=== PATIENT | female | born 1970 | race Hispanic/Latino ===

== ENCOUNTER → 2018-08-28 | Day surgery (SDC) | payer OTHER ==
[~2018-08-28] MED LIST: FENTANYL CITRATE/PF 100MCG/2 ML INJ ONE; IRON PO; MIDAZOLAM HCL 2 MG/2 ML VIAL ONE; PROPOFOL IV EMULSION 10 MG/ML 50 ML VIAL ONE
--- OUTSIDE RECORDS SUMMARY | 2018-08-28 10:47 | XMS REPORT ---
Author Author Admin, [place] Organization [facility] Address [address] [address] Phone Allergies, Adverse Reactions, Alerts Allergy Name Reaction Description Start Date Severity Status Provider No Known Allergies Ashley Dusty Conditions or Problems Problem Name Problem Code Onset Date Status Entry Date Provider Comment Standard Description Annotate Leg pain, acute 729.5 Active Nia Sanjana CNM Pain in limb Vaginitis 616.10 Active Nia Sanjana CNM Vaginitis and vulvovaginitis, unspecified Well woman exam V72.3 Active Nia Sanjana CNM Special investigations and examinations - Gynecological examination Medication List Medication Instructions Start Date Stop Date Generic Name NDC Status Provider Patient Instruction FLAGYL 500 MG TABS 1 tab by mouth twice a day for 7 days FLAGYL 500 MG TABS 291775 METRONIDAZOLE Inactive FLUCONAZOLE 150 MG TABS Take one tablet By Mouth. FLUCONAZOLE 150 MG TABS 066015 FLUCONAZOLE Inactive FLAGYL 500 MG TABS 1 tab by mouth twice a day for 7 days METRONIDAZOLE 30532357662 No Longer Active Nia Sanjana CNM Active FLUCONAZOLE 150 MG TABS Take one tablet By Mouth. FLUCONAZOLE [id number] No Longer Active Nia Sanjana CNM Active Diagnostic Results Date Name Value Unit Range Description Lab Report: CBC With Differential/Platelet, Comp. Metabolic Panel (14), ... - Serology hepatitis C antibody, serum <0.1 0.0-0.9 Lab Report: CBC With Differential/Platelet, Comp. Metabolic Panel (14), ... - Hematology lymphocyte count, blood, automated 2.0 X10E3/UL 10*3/mm3 0.7-3.1 Lab Report: CBC With Differential/Platelet, Comp. Metabolic Panel (14), ... - Chemistry urea nitrogen, blood 13 mg/dL 6-24 creatinine, serum 0.52 mg/dL 0.57-1.00 chloride, serum 102 mmol/L 97-108 Lab Report: CBC With Differential/Platelet, Comp. Metabolic Panel (14), ... - Hematology mean corpuscular volume, RBC 86 fL 79-97 Lab Report: CBC With Differential/Platelet, Comp. Metabolic Panel (14), ... - Chemistry triglyceride, serum, fasting 97 mg/dL 0-149 Lab Report: CBC With Differential/Platelet, Comp. Metabolic Panel (14), ... - Hematology erythrocyte (RBC) count 4.22 X10E6/UL 10*6/mm3 3.77-5.28 Lab Report: CBC With Differential/Platelet, Comp. Metabolic Panel (14), ... - Chemistry Estimated Glomerular Filtration Rate (calc) 115 mL/min/1.73m2 >59 Lab Report: CBC With Differential/Platelet, Comp. Metabolic Panel (14), ... - Hematology platelet count 221 X10E3/UL 10*3/mm3 733-920 1616/08/02 red blood cell distribution width 20.6 % 12.3-15.4 Lab Report: CBC With Differential/Platelet, Comp. Metabolic Panel (14), ... - Chemistry protein, total, serum 6.9 g/dL 6.0-8.5 HDL cholesterol, serum 71 mg/dL >39 albumin/globulin ratio, serum 1.6 1.1-2.5 Lab Report: CBC With Differential/Platelet, Comp. Metabolic Panel (14), ... - Hematology eosinophils as percent of blood leukocytes 12 % Lab Report: CBC With Differential/Platelet, Comp. Metabolic Panel (14), ... - Chemistry Absolute Neutrophils 4.7 X10E3/UL 10*3/uL 1.4-7.0 Lab Report: CBC With Differential/Platelet, Comp. Metabolic Panel (14), ... - Hematology basophil count, absolute 0.1 x10E3/uL 0.0-0.2 Lab Report: CBC With Differential/Platelet, Comp. Metabolic Panel (14), ... - Chemistry hepatitis B surface antigen Negative Negative alanine aminotransferase (SGPT), serum 19 U/L 0-32 LDL cholesterol, serum 102 mg/dL 0-99 Lab Report: CBC With Differential/Platelet, Comp. Metabolic Panel (14), ... - Hematology monocytes as percent of blood leukocytes 5 % Lab Report: CBC With Differential/Platelet, Comp. Metabolic Panel (14), ... - Chemistry cholesterol, serum 192 mg/dL 100-199 Lab Report: CBC With Differential/Platelet, Comp. Metabolic Panel (14), ... - Hematology mean corpuscular hemoglobin concentration, RBC 32.3 G/DL % 31.5-35.7 hemoglobin, blood 11.7 g/dL 11.1-15.9 leukocyte count, blood 8.0 X10E3/UL 10*3/mm3 3.4-10.8 hematocrit, blood 36.2 % 34.0-46.6 Lab Report: CBC With Differential/Platelet, Comp. Metabolic Panel (14), ... - Chemistry globulin, serum 2.7 1.5-4.5 thyroid stimulating hormone, serum 1.790 u[iU]/mL 0.450-4.500 albumin, serum 4.2 g/dL 3.5-5.5 very low density lipoproteins 19 mg/dL 5-40 Lab Report: CBC With Differential/Platelet, Comp. Metabolic Panel (14), ... - Serology rubella antibody, serum, IgG 26.40 Immune >0.99 Lab Report: CBC With Differential/Platelet, Comp. Metabolic Panel (14), ... - Chemistry calcium, serum 9.0 mg/dL 8.7-10.2 Lab Report: CBC With Differential/Platelet, Comp. Metabolic Panel (14), ... - Hematology basophils as percent of blood leukocytes 1 % monocyte count, blood, automated 0.4 X10E3/UL 10*3/uL 0.1-0.9 Lab Report: CBC With Differential/Platelet, Comp. Metabolic Panel (14), ... - Chemistry urea nitrogen/creatinine ratio, serum 25 9-23 immature granulocytes, percentage of total cells, blood 0 % Lab Report: CBC With Differential/Platelet, Comp. Metabolic Panel (14), ... - Genetics/fertility eGFR if 133 mL/min/1.73m2 >59 Lab Report: CBC With Differential/Platelet, Comp. Metabolic Panel (14), ... - Hematology lymphocytes as percent of blood leukocytes 25 % Lab Report: CBC With Differential/Platelet, Comp. Metabolic Panel (14), ... - Chemistry carbon dioxide, venous blood 22 mmol/L 18-29 Lab Report: CBC With Differential/Platelet, Comp. Metabolic Panel (14), ... - Serology rapid plasma reagin antibody, serum Non Reactive Non Reactive Lab Report: NuSwab Vaginitis Plus (VG+), Lucinda 4 Species Profile, LEONCIO, ... - Lab chlamydia DNA probe Negative Negative Lab Report: NuSwab Vaginitis Plus (VG+), Lucinda 4 Species Profile, LEONCIO, ... - Microbiology Neisseria gonorrhoeae DNA probe Negative Negative Lab Report: CBC With Differential/Platelet, Comp. Metabolic Panel (14), ... - Chemistry sodium, serum 140 mmol/L 959-059 1455/08/02 hemoglobin A1C, blood, as % of total hemoglobin 5.8 % 4.8-5.6 alkaline phosphatase, serum 94 U/L 39-117 Lab Report: CBC With Differential/Platelet, Comp. Metabolic Panel (14), ... - Hematology Eosinophil Absolute Count 0.9 X10E3/UL 10*3/uL 0.0-0.4 mean corpuscular hemoglobin, RBC 27.7 pg 26.6-33.0 Lab Report: NuSwab Vaginitis Plus (VG+), Lucinda 4 Species Profile, LEONCIO, ... - Urinalysis trichomonas vaginalis, urine Negative Negative Lab Report: CBC With Differential/Platelet, Comp. Metabolic Panel (14), ... - Chemistry bilirubin, serum, total <0.2 mg/dL mg/dL 0.0-1.2 Lab Report: CBC With Differential/Platelet, Comp. Metabolic Panel (14), ... - Hematology neutrophils as percent of blood leukocytes 57 % Lab Report: CBC With Differential/Platelet, Comp. Metabolic Panel (14), ... - Chemistry potassium, serum 4.3 mmol/L 3.5-5.2 blood glucose, random 84 mg/dL 65-99 aspartate aminotransferase (SGOT), serum 20 U/L 0-40 Encounters Date Encounter Provider Code Facility 10:57:18 CDT Ofc Vst, Est Level IV Nia Sanjana CN CPT-26908 [facility] Procedures Code Procedure Name Date Entry Date Standard Description CPT-92716 Urinalysis - Dip only - In House 10:57:18 CDT CPT-92723 Urinalysis - - In House 10:57:18 CDT CPT-94452 Handling of specimen for transfer 10:57:18 CDT CPT-59698 Venipuncture 10:57:17 CDT
--- OUTSIDE RECORDS SUMMARY | 2018-08-28 10:47 | XMS REPORT ---
Author [facility] Address Unknown Phone Unavailable Care Team Providers Care Plater Barrel Name Role Phone Unavailable Unavailable Payers Payer Name Policy Type Policy Number Effective Date Expiration Date Problems This patient has no known problems. Allergies, Adverse Reactions, Alerts Allergy Name Allergy Type Status Severity Reaction(s) Onset Date Inactive Date Treating Clinician Comments No Known Allergies DA Active U 2013-09-15 00:00:00 Medications This patient has no known medications. Results Test Description Test Time Test Comments Text Results Atomic Results Result Comments UA RFLX MICR CULT IF INDICATED 2018-08-09 07:30:00 UA COLOR (test code=COLU) Yellow Yellow UA APPEARANCE (test code=APPU) Slightly-Cloudy Clear UA GLUCOSE DIPSTICK (test code=DGLUU) Negative Negative UA BILIRUBIN DIPSTICK (test code=BILU) Negative Negative UA KETONE DIPSTICK (test code=KETU) Negative mg/dL Negative UA SPECIFIC GRAVITY (test code=SGU) 1.023 <1.030 UA BLOOD DIPSTICK (test code=RAFFY) Negative Negative UA PH DIPSTICK (test code=TEQUILA) 7.0 5.0-8.0 UA PROTEIN DIPSTICK (test code=PROU) NEGATIVE mg/dL Negative UA UROBILINOGEN DIPSTICK (test code=URO) Negative mg/dL Negative UA NITRITE DIPSTICK (test code=PATRICIO) Negative Negative UA LEUKOCYTE ESTERASE DIPSTICK (test code=LEUU) NEGATIVE Negative UA WBC (test code=WBCUR) 0-3 /HPF <4-5 <10 WBC/HPF=PYURIA ABSENT URINE CULTURE NOT INDICATED UA RBC (test code=RBCU) 0-3 /HPF <4-5 UA BACTERIA (test code=BACU) None /HPF None-Rare UA SQUAMOUS CELLS (test code=SQU) 0-5 (RARE) /HPF 0-5 (RARE) UA MUCUS (test code=MUCU) Rare /LPF <Rare less than 18 yrs old, neutropenic, or urological surgery? NOPrimary Indication f or Culture: Suprapubic Pain- CT ABD PELVIS [id number] 07:17:00 FAX: Janelle Santo [phone] [place]: St: REG Name: HE PADILLA [facility] : 9 Age/S: 48/F [address] Unit: [id number] Loc: [place] [address] Phys: Janelle Davila JAILER Acct: [id number] Dis Date: Status: REG ER PHONE #: [phone] Exam Date: 08/09/2018 0700 FAX #: [phone] Reason: RLQ abd pain EXAMS: CPT CODE: [id number] CT ABD PELVIS W/CONT 25425 EXAM: CT ABDOMEN AND PELVIS WITH IV CONTRAST Location code: R16 INDICATION: 48-year- old female with right lower quadrant pain TECHNIQUE: Contra st - Nonionic IV contrast was given. No GI contrast was given. Portal veno us phase: Abdomen and pelvis Delayed phase: None Reconstructions: Co jillian and sagittal One or more of the following dose reduction te chniques were used: Automated exposure control; adjustment of the mA and/o r kV according to the patient size; and/or use of iterative reconstruction technique. COMPARISON: None FINDINGS: Stateme nts: None. Lower thorax: Unremarkable. Hepatobiliary : The liver is normal without focal lesion. The gallbladder is normal. No biliary dilation. Pancreas: Normal. Spleen: Normal. Adrenals: Normal. Genitourinary: No solid renal mas s, significant cortical thinning, obvious renal stone or hydronephrosis. U reters are unremarkable. Urinary bladder is unremarkable. The visualized r eproductive organs are unremarkable. Gastrointestinal: There is wall thickening and significant mucosal enhancement in the distal 4 to 5 cm of terminal ileum. Appendix does not contain air and is mildly diffu sely enlarged measuring up to 0.7 cm diameter but no significant periappen diceal inflammation and no obvious appendicolith. No other focal areas of small bowel, gastric, or colonic wall thickening or mucosal thickening. No bowel distention to suggest obstruction. PAGE 1 Signed Report (CONTINUED) FAX: Janelle Santo [phone] [place]: St: REG Name: HE JOSE [facility] : 1970 Age/S: 48/F [address] Unit: [id number] Loc: [place] [address] Phys: Janelle Davila JAILER Acct: [id number] Dis Date: Status: REG ER PHONE #: [phone] Exam Date: 08/09/2018 0700 FAX #: [phone] Reason: RLQ abd pain EXAMS: CPT CODE: [id number] CT ABD PELVIS W/CONT 19406 <Continued> Vascular: No aortic aneurysm or dissection. Lymphatics: A few mildly enlarged lymph nodes are seen in the right lower quadrant mesentery measuring up to 2.3 cm diameter and nonnecrotic. No other abnormally enlarged lymph nodes by CT criteria. No inguinal adenopathy. Bones/Soft Tissues: No acute osseous findings. No ventral hernias. Peritoneum/Other: No free intraperitoneal air. No free intraperitoneal fluid. IMPRESSION: 1. Wall thickening and mucosal enhancement in the terminal ileum suspicious for ileitis or inflammatory bowel disease/Crohn's disease. 2. Appendix is mildly diffusely enlarged measuring 7 mm diameter but acute appendicitis is doubtful. 3. Mild mesenteric lymphadenopathy right lower quadrant. 4. No free fluid or free air. at 0717 Reported and signed by: Taylor Rodriguez MD CC: Janelle Davila NP Technologist: Jules Sargent Dt/Tm: 08/09/2018 (4017) [email or web address] Orig Print D/T: S: 08/09/2018 (9820 PAGE 2 Signed Report BASIC METABOLIC [id number] 07:09:00* Test Item Value Reference Range Comments SODIUM (test code=NA) 139 mmol/L 137-145 POTASSIUM (test code=K) 4.3 mmol/L 3.4-5.0 CHLORIDE (test code=CL) 107 mmol/L 98-107 CARBON DIOXIDE (test code=CO2) 24 mmol/L 22-30 GLUCOSE (test code=GLU) 104 mg/dL 74-106 BLOOD UREA NITROGEN (test code=BUN) 18 mg/dL 7-17 GLOMERULAR FILTRATION RATE (test code=GFR) >=60 max estimate >60 The estimated glomerular filtration rate is computed usingpatient race, age (>18), sex, and serum creatinine. If anyof the needed data elements are missing the Laboratory cannot compute an estimation of the glomerular filtration rate. CREATININE (test code=CREAT) 0.65 mg/dL 0.52-1.04 CALCIUM (test code=CA) 8.9 mg/dL 8.4-10.2 LIVER FUNCTION [id number] 07:09:00* Test Item Value Reference Range Comments TOTAL PROTEIN (test code=PROT) 7.3 g/dL 6.3-8.2 ALBUMIN (test code=ALB) 4.0 g/dL 3.5-5.0 BILIRUBIN TOTAL (test code=BILT) 0.2 mg/dL 0.2-1.3 BILIRUBIN CONJUGATED (test code=BILCON) 0 mg/dL 0-0.3 ~~~~~~~~~~~~~~~~~~~~~~~~~~~~~~~~~~~~~~~~~~~~~~~~~~~~~~~~~~~~CONJUGATED BILIRUBIN IS THE REPLACEMENT ASSAY FOR DIRECTBILIRUBIN.~~~~~~~~~~~~~~~~~~~~~~~~~~~~~~~~~~~~~~~~~~~~~~~~~~~~~~~~~~~~ BILIRUBIN UNCONJUGATED (test code=BILUNC) 0.1 mg/dL 0-1.1 SGOT/AST (test code=AST) 37 U/L 15-46 SGPT/ALT (test code=ALT) 39 U/L 13-69 ALKALINE PHOSPHATASE (test code=ALKP) 122 U/L 38-126 [id number] 07:09:00* Test Item Value Reference Range Comments LIPASE (test code=LIP) U/L 23-300 BASIC METABOLIC [id number] 07:09:00* Test Item Value Reference Range Comments SODIUM (test code=NA) 139 mmol/L 137-145 POTASSIUM (test code=K) 4.3 mmol/L 3.4-5.0 CHLORIDE (test code=CL) 107 mmol/L 98-107 CARBON DIOXIDE (test code=CO2) 24 mmol/L 22-30 GLUCOSE (test code=GLU) 104 mg/dL 74-106 BLOOD UREA NITROGEN (test code=BUN) 18 mg/dL 7-17 GLOMERULAR FILTRATION RATE (test code=GFR) >=60 max estimate >60 The estimated glomerular filtration rate is computed usingpatient race, age (>18), sex, and serum creatinine. If anyof the needed data elements are missing the Laboratory cannot compute an estimation of the glomerular filtration rate. CREATININE (test code=CREAT) 0.65 mg/dL 0.52-1.04 CALCIUM (test code=CA) 8.9 mg/dL 8.4-10.2 LIVER FUNCTION [id number] 07:09:00* Test Item Value Reference Range Comments TOTAL PROTEIN (test code=PROT) 7.3 g/dL 6.3-8.2 ALBUMIN (test code=ALB) 4.0 g/dL 3.5-5.0 BILIRUBIN TOTAL (test code=BILT) 0.2 mg/dL 0.2-1.3 BILIRUBIN CONJUGATED (test code=BILCON) 0 mg/dL 0-0.3 ~~~~~~~~~~~~~~~~~~~~~~~~~~~~~~~~~~~~~~~~~~~~~~~~~~~~~~~~~~~~CONJUGATED BILIRUBIN IS THE REPLACEMENT ASSAY FOR DIRECTBILIRUBIN.~~~~~~~~~~~~~~~~~~~~~~~~~~~~~~~~~~~~~~~~~~~~~~~~~~~~~~~~~~~~ BILIRUBIN UNCONJUGATED (test code=BILUNC) 0.1 mg/dL 0-1.1 SGOT/AST (test code=AST) 37 U/L 15-46 SGPT/ALT (test code=ALT) 39 U/L 13-69 ALKALINE PHOSPHATASE (test code=ALKP) 122 U/L 38-126 [id number] 07:09:00* Test Item Value Reference Range Comments LIPASE (test code=LIP) 103 U/L 23-300 CBC W/AUTO [id number] 07:05:00* Test Item Value Reference Range Comments WHITE BLOOD CELL (test code=WBC) 12.3 x10 3/uL 5.0-12.0 RED BLOOD CELL (test code=RBC) 4.13 x10 6/uL 4.20-5.40 HEMOGLOBIN (test code=HGB) 9.9 g/dL 12.0-16.0 HEMATOCRIT (test code=HCT) 33.4 % 36.0-46.0 MEAN CELL VOLUME (test code=MCV) 81 fL 81-99 MEAN CELL HGB (test code=MCH) 24.0 pg 27-31 MEAN CELL HGB CONCENTRATION (test code=MCHC) 29.6 g/dL 33-37 RED CELL DISTRIBUTION WIDTH (test code=RDW) 21.8 % 11.5-15.5 PLATELET COUNT (test code=PLT) 254 x10 3/uL 130-400 MEAN PLATELET VOLUME (test code=MPV) 12.1 fL 9.4-16.4 NEUTROPHIL % (test code=NT%) 70.4 % 43-65 IMMATURE GRANULOCYTE % (test code=IG%) 0.3 % 0.0-2.0 LYMPHOCYTE % (test code=LY%) 13.6 % 20.5-45.5 MONOCYTE % (test code=MO%) 6.6 % 5.5-11.7 EOSINOPHIL % (test code=EO%) 8.5 % 0.9-2.9 BASOPHIL % (test code=BA%) 0.6 % 0.2-1.0 NUCLEATED RBC % (test code=NRBC%) 0.0 % 0-1.0 NEUTROPHIL # (test code=NT#) 8.64 x10 3/uL 2.2-4.8 IMMATURE GRANULOCYTE # (test code=IG#) 0.04 x10 3/uL 0-0.03 LYMPHOCYTE # (test code=LY#) 1.67 x10 3/uL 1.3-2.9 MONOCYTE # (test code=MO#) 0.81 x10 3/uL 0.3-0.8 EOSINOPHIL # (test code=EO#) 1.04 x10 3/uL 0.0-0.2 BASOPHIL # (test code=BA#) 0.07 x10 3/uL 0.0-0.1 BEDSIDE [id number] 07:01:00* Test Item Value Reference Range Comments BEDSIDE CREATININE (test code=CREATBED) 0.7 mg/dL 0.52-1.04
[2018-08-28 13:25] VITALS: BP 118/72
== END | disposition home or self-care (01) ==
LOC: OR 10:45
PROVIDERS: ATTEND Internal Medicine
DX: K50.90 Crohn's disease, unspecified, without complications (principal); K64.0 First degree hemorrhoids; D64.9 Anemia, unspecified
CPT/HCPCS: 45380; 81025; J2250; J2704; 45378

== ENCOUNTER → 2019-03-19 | Day surgery (SDC) | payer OTHER ==
[2019-03-16 12:17] LABS: BASOPHILS # (AUTO) 0.1 (0.0-0.1); BASOPHILS % 0.6 % (0.0-1.0); EOSINOPHILS # (AUTO) 0.7 (0.0-0.4); EOSINOPHILS % 7.7 % (0.0-6.0); HEMATOCRIT 29.2 % (34.2-44.1); HEMOGLOBIN 8.5 g/dL (12.0-16.0); LYMPHOCYTES # (AUTO) 2.2 (1.0-3.2); LYMPHOCYTES % 23.5 % (18.0-39.1); MEAN CORPUSCULAR HGB CONC 29.1 g/dL (31-35); MEAN CORPUSCULAR VOLUME 78.9 fL (81-99); MONOCYTES # (AUTO) 0.6 (0.2-0.8); MONOCYTES % 6.5 % (4.4-11.3); NEUTROPHILS # (AUTO) 5.8 (2.1-6.9); NEUTROPHILS % 60.7 % (38.7-80.0); PLATELET COUNT 223 x10e3/uL (140-360); RED CELL DISTRIBUTION WIDTH 23.8 % (11.7-14.4)
[2019-03-16 12:30] LABS: ANION GAP 11.7 mmol/L (8-16); BLOOD UREA NITROGEN 12 mg/dL (7-26); BUN/CREATININE RATIO 19 (6-25); CALCIUM 9.1 mg/dL (8.4-10.2); CARBON DIOXIDE 26 mmol/L (22-29); CHLORIDE 104 mmol/L (98-107); CREATININE, SERUM 0.62 mg/dL (0.57-1.11); EST GLOMERULAR FILTRATION RATE > 60 ML/MIN (60-); GLUCOSE 97 mg/dL (74-118); POTASSIUM 3.7 mmol/L (3.5-5.1); SODIUM 138 mmol/L (136-145)
--- NOTE | 2019-03-16 13:00 | Diagnostic Imaging Report ---
Exam: Chest radiograph Clinical History: Preoperative clearance Findings: The cardiomediastinal silhouette and lungs are normal. The regional skeleton and soft tissue are unremarkable. There is no evidence of pleural effusion or pneumothorax. Impression: No radiographic evidence of acute cardiopulmonary disease. Signed by: Dr. Isma Meléndez MD on 03/16/2019 12:56 PM
[2019-03-16 13:01] LABS: EOSINOPHILS % (MANUAL) 6 % (0-7); LYMPHOCYTES % (MANUAL) 21 % (19-48); MONOCYTES % (MANUAL) 7 % (3.4-9.0); NEUTROPHILS % (MANUAL) 66 % (40-74)
[2019-03-16 13:02] LABS: PLATELET ESTIMATE ADEQUATE; RBC MORPHOLOGY COMMENT NORMAL
[~2019-03-19] MED LIST changes: +BETAMETHASONE DISODIUM PHOS 6 MG/ML VIAL ONE; +BUPIVACAINE HCL 0.5% INJ 30 ML VIAL INJ ONE; +DEXAMETHASONE SOD PHOS INJ 4 MG/ML VIAL ONE; +LIDOCAINE HCL 1% LOCAL INJ 20 ML VIAL ONE; +LIDOCAINE HCL 2% LOCAL INJ 5 ML SDV VIAL INJ ONE; +MUPIROCIN 2% OINT 22 GM TUBE ONE; +ONDANSETRON HCL INJ 2MG/ML 2ML 2 MG/ML VIAL ONE; +PROPOFOL IV EMULSION 10 MG/ML 20 ML VIAL ONE; -PROPOFOL IV EMULSION 10 MG/ML 50 ML VIAL ONE; +SEVOFLURANE INHAL SOLN 250 ML PEN BTL ONE
--- OUTSIDE RECORDS SUMMARY | 2019-03-19 05:15 | XMS REPORT | Continuity of Care Document ---
Author Author UCAN [facility] [employer] Address Unknown Phone Unavailable Care Team Providers Care Estimating Engineer Name Role Phone [facility] [employer] Unavailable Unavailable Problems Problem Status Onset Date Classification Date Reported Comments Source Acute pharyngitis, unspecified 12/01/2018 12/03/2018 [facility] Acute upper respiratory infection, unspecified 12/01/2018 12/03/2018 [facility] FEVER Active 12/01/2018 [facility] Medications Medication Details Route Status Patient Instructions Ordering Provider Order Date Source Fluticasone propionate 0.05 MG/ACTUAT Metered Dose Nasal [place] [Flonase] 1 spray, NASAL, BID, # 16 gm, 0 Refill(s) Active 12/01/2018 [facility] 24 HR Pseudoephedrine Hydrochloride 240 MG Extended Release Tablet [Sudafed] 240 mg=1 tab, PO, Daily, PRN for cold symptoms, X 10 day, # 10 tab, 0 Refill(s) Active 12/01/2018 [facility] Ibuprofen 600 mg, Route: PO, Drug form: TAB, ONCE, Dosing Weight 62.983, kg, Priority: STAT, Start date: 12/01/18 4:28:00 CDT, Stop date: 12/01/18 4:28:00 CDT Inactive 12/01/2018 [facility] Allergies, Adverse Reactions, Alerts No Known Medication Allergies Immunizations No Data Provided for This Section Results Order Name Results Value Reference Range Date Interpretation Comments Source RAPID Grp A Strep Scr Negative (12/01/18 4:15 AM) Negative 12/01/2018 [facility] Pathology Reports No Data Provided for This Section Diagnostic Reports No Data Provided for This Section Consultation Notes No Data Provided for This Section Discharge Summaries No Data Provided for This Section History and Physicals No Data Provided for This Section Vital Signs Vital Sign Value Date Comments Source BMI Calculated 27.12 12/01/2018 [facility] Weight 62.983 12/01/2018 [facility] Systolic (mm Hg) 127 12/01/2018 [facility] Diastolic (mm Hg) 73 12/01/2018 [facility] Height 152.4 cm 12/01/2018 [facility] Heart Rate 71 12/01/2018 [facility] Temperature Oral (F) 98 F 12/01/2018 [facility] Respitory Rate 20 12/01/2018 [facility] Encounters Location Location Details Encounter Type Encounter Number Reason For Visit Attending Provider ADM Date DC Date Status Source [facility] Emergency [id number] Deann Knappkike 12/01/2018 12/01/2018 [facility] Procedures No Data Provided for This Section Assessment and Plan No Data Provided for This Section Plan of Care No Data Provided for This Section Social History Social History Date Source Social History TypeResponse Smoking Status Never smoker; Ready to change: No; Concerns about tobacco use in household: No; Exposure to Tobacco Smoke None; Cigarette Smoking Last 365 Days No; Reg Smoking Cessation Counseling No entered on: 12/01/18 12/01/2018 [facility] Family History No Data Provided for This Section Advance Directives No Data Provided for This Section Functional Status No Data Provided for This Section
--- OUTSIDE RECORDS SUMMARY | 2019-03-19 05:15 | XMS REPORT | Summary of Care ---
Author Author [facility] Organization [facility] Address Unknown Phone Unavailable Encounter HQ Sj(FIN) [id number] Date(s): 12/01/18 - 12/01/18 [facility] [address] [place], [place], [place] [address]- [phone] Encounter Diagnosis Viral pharyngitis (Discharge Diagnosis) - 12/01/18 Upper respiratory infection (Discharge Diagnosis) - 12/01/18 Discharge Disposition: Home or Self Care Attending Physician: Deann Villavicencio MD Vital Signs Most recent to 1 oldest [Reference Range]: Height 152.4 cm (12/01/18 4:06 AM) Temperature Oral 98 DegF [96.4-99.1 DegF] (12/01/18 4:06 AM) Blood Pressure 127/73 mmHg [90-140/60-90 mmHg] (12/01/18 4:06 AM) Respiratory Rate 20 BRMIN [14-20 BRMIN] (12/01/18 4:06 AM) Peripheral Pulse 71 bpm Rate [60-100 bpm] (12/01/18 4:06 AM) Weight 62.983 kg (12/01/18 4:06 AM) Body Mass Index 27.12 m2 (12/01/18 4:06 AM) Problem List No data available for this section Allergies, Adverse Reactions, Alerts No Known Allergies Medications Flonase 0.05 mg/inh nasal spray 1 spray, NASAL, BID, # 16 gm, 0 Refill(s) Start Date: 12/01/18 Status: Ordered ibuprofen 600 mg, Route: PO, Drug form: TAB, ONCE, Dosing Weight 62.983, kg, Priority: STA T, Start date: 12/01/18 4:28:00 CDT, Stop date: 12/01/18 4:28:00 CDT Start Date: 12/01/18 Stop Date: 12/01/18 Status: Completed Sudafed 24-Hour oral tablet, extended release 240 mg=1 tab, PO, Daily, PRN for cold symptoms, X 10 day, # 10 tab, 0 Refill(s) Start Date: 12/01/18 Stop Date: 12/11/18 Status: Ordered Results Most recent to 1 oldest [Reference Range]: Grp A Strep Scr Negative [Negative] (12/01/18 4:15 AM) Immunizations No data available for this section Procedures No data available for this section Social History Social History Type Response Smoking Status Never smoker; Ready to change: No; Concerns about tobacco use in household: No; Exposure to Tobacco Smoke None; Cigarette Smoking Last 365 Days No; Reg Smoking Cessation Counseling No entered on: 12/01/18 Assessment and Plan No data available for this section
[2019-03-19 10:10] VITALS: BP 123/66
--- NOTE | 2019-03-19 11:04 | Diagnostic Imaging Report ---
Exam: Right foot 2 views Clinical history: Status post bunionectomy Findings: The patient is status post hallux valgus repair. Overall alignment appears anatomical. The right distal first metatarsal is transfixed with a surgical screw and a surgical pin. A second surgical pain is also used to transfix the fourth DIP and PIP. Due to the casting material, some of the bony details are not well visualized. Bony erosive changes are also noted at the head of the fifth proximal phalanx likely due to posttraumatic changes. However, no gross malalignment noted. Impression: 1. Status post hallux valgus repair and fourth digit pinning with postoperative changes. Signed by: Dr. Isma Meléndez MD on 03/19/2019 11:00 AM
--- NOTE | 2019-03-19 12:55 | Operative Report ---
DATE OF PROCEDURE: 03/19/2019 SURGEON: Zion Dye DPM PREOPERATIVE DIAGNOSES: 1. Painful hallux valgus deformity, right foot. 2. Painful contracted hammertoes 4th digit, right foot. 3. Painful contracted hammertoes 5th digit, right foot. POSTOPERATIVE DIAGNOSES: Confirmed. OPERATIVE PROCEDURES: 1. Hamilton bunionectomy screw fixation, right foot. 2. Arthroplasty of 4th digit with K-wire fixation of 4th digit, right foot. 3. Arthroplasty of 5th digit, right foot. 4. Intraoperative use of fluoroscopy. 5. Trigger point shot of cortisone. 6. Application of posterior splint. ANESTHESIA: General. HEMOSTASIS: Pneumatic thigh tourniquet at 350 mmHg. PROCEDURE IN DETAIL: The patient was taken into the operating room and placed on the operating table in supine position. Following induction of general anesthesia by the anesthesiologist, Webril wraps were placed on the patient's right thigh, followed by application of right thigh tourniquet. The right lower extremity was then prepped and draped in the usual aseptic manner and the following procedures were then performed. Procedure #1: Hamilton bunionectomy with screw fixation, right foot. Attention was directed to the dorsomedial aspect of the 1st MPJ, where a 6 cm linear incision was performed. Incision was deepened down to the joint capsule. Longitudinal capsulotomy was then performed exposing the dorsomedial exostosis of the 1st metatarsal head. Using oscillating saw, dorsomedial exostosis was excised from the operation site in toto. All rough and bony edges were rasped smooth. A V-osteotomy was then performed from medial to lateral. Capital fragment was then transpositioned laterally upon adequate surgical and anatomical reduction utilizing proper AO technique, a 2.0, 12 mm cortical screw in conjunction with buried 0.045 K-wire was used to achieve stability of osteotomy site. All redundant medially was excised via the use of an oscillating saw and rotating bur. Procedure #2 and 3: Arthroplasty 4th and 5th digits with K-wire fixation of 4th. Attention was then directed to the dorsal aspect of the above-mentioned toes, where a 3 cm linear incision was performed. Incision was deepened down to the joint capsule. Transverse capsulotomy was then performed exposing the head of the proximal phalanx. Via the use of an oscillating saw, head of the proximal phalanx were excised from the operation site in toto. All rough and bony edges were rasped smooth. The 4th toe was still noted to be contracted, so a 0.045 K-wire was introduced up to metatarsophalangeal joint to achieve proper anatomical reduction. Procedure #4. Intraoperative use of fluoroscopy was then used to make sure proper alignment and fixation was achieved. Closure was then obtained utilizing 3-0 Vicryl, 4-0 Vicryl, and 4-0 nylon for capsule, subcutaneous tissue, and skin respectively after properly copiously flushing the areas with saline. Procedure #5: Trigger point shot of cortisone was then given to the 1st and 4th interspace to reduce the inflammation. Then, approximately 15 mL of 0.5% plain Marcaine plus 5 mL of 1% Xylocaine were used to achieve local anesthesia of above-mentioned surgical area. Sterile dressing was applied. Upon release of the thigh tourniquet, blood hyperemia was noted immediate to all digits of the patient's right foot. Procedure #6: Application of posterior splint. A properly placed posterior splint was then applied keeping the foot at 90 degrees with respect to the leg to try to prevent any postop complications. The patient was then transferred from the OR to recovery room with vital signs stable and neurovascular status intact. No intraoperative complications were encountered. Blood loss from the surgery was minimal. The patient is to remain nonweightbearing with the aid of the crutches, keep her foot elevated, and is to apply an ice pack to the ankle joint area. SANYA Griffiths/BARBARA /[id number]
== END | disposition home or self-care (01) ==
LOC: OR 05:00
PROVIDERS: ATTEND Podiatrist Foot Surgery
DX: M20.11 Hallux valgus (acquired), right foot (principal); M20.41 Other hammer toe(s) (acquired), right foot; M79.671 Pain in right foot; Z01.810 Encounter for preprocedural cardiovascular examination; Z01.812 Encounter for preprocedural laboratory examination; Z01.811 Encounter for preprocedural respiratory examination; D64.9 Anemia, unspecified
CPT/HCPCS: 28285 ×2; 28296; 36415; 71046; 73620; 80048; 81025; 85025; 93005; C1713 ×2; J0720; J1100; J2001 ×2; J2250; J2405; J2704; J3010